=== PATIENT | male | born 1970 | race Caucasian/White ===

== ENCOUNTER 2019-06-08 17:21 | Emergency (ER) | payer BC ==
[~2019-06-08] VITALS: Ht 185.4 cm; Wt 105.2 kg
[2019-06-08 17:51] LABS: BASOPHILS % (AUTO) 0.3 % (0.0-5.0); EOSINOPHILS % (AUTO) 1.9 % (0.0-8.0); HEMATOCRIT 37.5 % (42-54); LYMPHOCYTES % (AUTO) 9.4 % (21.0-51.0); MEAN CORPUSCULAR HEMOGLOBIN 30.9 pg (27.0-33.0); MEAN CORPUSCULAR HGB CONC 34.7 g/dL (32.0-36.0); MEAN CORPUSCULAR VOLUME 89.1 fL (79-99); MONOCYTES % (AUTO) 7.1 % (3.0-13.0); NEUTROPHILS % (AUTO) 81.3 % (40.0-77.0); NUCLEATED RED BLOOD CELLS 0.1 % (0.0-0.19); PLATELET COUNT (AUTO) 186 K/uL (130-400); RED BLOOD CELL COUNT(AUTO) 4.21 MIL/uL (4.50-6.20); RED CELL DISTRIBUTION WIDTH 13.9 % (11.0-15.5); WHITE BLOOD COUNT (AUTO) 6.9 K/uL (4.8-10.8)
[2019-06-08] MEDS ORDERED: SODIUM CHLORIDE 0.9% 1000ML 1,000 ML IV ONE ×2 (18:09→18:39)
[2019-06-08 18:23] LABS: CREATININE 1.6 mg/dL (0.5-1.5); POTASSIUM 4.3 mmol/L (3.5-5.1)
[2019-06-08 18:29] LABS: ALBUMIN 3.9 g/dL (3.5-5.0); BILIRUBIN,TOTAL 0.6 mg/dL (0.2-1.0); TOTAL PROTEIN, SERUM 7.8 g/dL (6.0-8.3)
[2019-06-08] MEDS ORDERED: INSULIN HUMULIN R 100 UNIT/ML 3ML ONE (18:38)
[2019-06-08] MEDS ORDERED: GLYCERIN ADULT SUPP.RECT RC ONE (20:30)
[2019-06-08] MEDS ORDERED: MAGNESIUM CITRATE 296 ML SOLUTION ONE (21:29)
[2019-06-09] MEDS ORDERED: CEFTRIAXONE SODIUM 1 GM ONE (01:17)
== END 2019-06-09 01:49 | disposition home or self-care (01) ==
LOC: EDH 17:21
DX: K59.00 Constipation, unspecified (principal); J18.1 Lobar pneumonia, unspecified organism; E11.9 Type 2 diabetes mellitus without complications
CPT/HCPCS: 36415; 74176; 80053; 83690; 85025; 96374; 96375; 99285; J0696; J1815; J7030 ×2